=== PATIENT | female | born 1990 | race Caucasian/White ===

== ENCOUNTER 2021-07-16 15:23 | Emergency (ER) | payer OTHER ==
[~2021-07-16] VITALS: Ht 165.1 cm; Wt 90.7 kg
== END 2021-07-16 17:22 | disposition home or self-care (01) ==
LOC: ER 15:23
DX: G44.209 Tension-type headache, unspecified, not intractable (principal); G43.909 Migraine, unspecified, not intractable, without status migrainosus; Z88.2 Allergy status to sulfonamides; Z88.1 Allergy status to other antibiotic agents
CPT/HCPCS: 99283

== ENCOUNTER 2021-12-30 21:53 | Emergency (ER) | payer OTHER ==
[~2021-12-30] VITALS: Ht 165.1 cm; Wt 90.7 kg
[2021-12-30] MEDS ORDERED: Amoxicillin875 MG PO (22:54)
== END 2021-12-30 23:05 | disposition home or self-care (01) ==
LOC: ER 21:53
DX: L73.2 Hidradenitis suppurativa (principal); Z88.2 Allergy status to sulfonamides
CPT/HCPCS: 99283; A9270

== ENCOUNTER 2022-05-16 10:07 | Emergency (ER) | payer OTHER ==
[~2022-05-16] VITALS: Ht 167.6 cm; Wt 99.8 kg
[~2022-05-16 10:07] MED LIST: Amoxicillin875 MG PO
== END 2022-05-16 11:05 | disposition home or self-care (01) ==
LOC: ER 10:07
DX: G44.209 Tension-type headache, unspecified, not intractable (principal); Z88.2 Allergy status to sulfonamides; Z88.1 Allergy status to other antibiotic agents
CPT/HCPCS: 99282

== ENCOUNTER 2022-06-29 12:37 | Emergency (ER) | payer OTHER ==
[~2022-06-29] VITALS: Ht 167.6 cm; Wt 99.8 kg
== END 2022-06-29 16:47 | disposition home or self-care (01) ==
LOC: ER 12:37
DX: S52.125A Nondisplaced fracture of head of left radius, initial encounter for closed fracture (principal); S30.0XXA Contusion of lower back and pelvis, initial encounter; S46.911A Strain of unspecified muscle, fascia and tendon at shoulder and upper arm level, right arm, initial encounter; W10.9XXA Fall (on) (from) unspecified stairs and steps, initial encounter
CPT/HCPCS: 72220; 73030; 73080